=== PATIENT | female | born 1990 | race Two or more races ===

== ENCOUNTER 2017-03-17 15:45 | Emergency (ER) | payer SELFPAY ==
[~2017-03-17] VITALS: Ht 162.6 cm; Wt 56.0 kg
[2017-03-17 15:53] VITALS: BP 138/76
== END 2017-03-17 17:24 | disposition left against medical advice (07) ==
LOC: ER 15:56
DX: Z04.8 Encounter for examination and observation for other specified reasons (principal); Z53.21 Procedure and treatment not carried out due to patient leaving prior to being seen by health care provider